=== PATIENT | male | born 1980 | race Caucasian/White ===

== ENCOUNTER 2018-11-09 19:23 | Emergency (ER) | payer OTHER ==
[2018-11-09 20:16] VITALS: BP 127/81
--- NOTE | 2018-11-09 21:16 | UC ---
FLU HPI - HPI Summary HPI Summary: 38-year-old male presents with one-week history of subjective fever, fatigue, malaise, and muscle aches. Today he noticed to circular rashes, one on his left upper arm and the other to his right ankle/heel. No known tick bite but frequently participates in outdoor activities. Denies headache, neck pain, ear pain, nasal congestion, runny nose, sore throat, cough, chest pain, shortness of breath, abdominal pain, nausea, or vomiting. - History of Current Complaint Chief Complaint: UCGeneralIllness Stated Complaint: FLU LIKE SYMPTONS, BULLS EYE MEG ON ANKLE Time Seen by Provider: 11/09/18 21:04 Hx Obtained From: Patient Pain Intensity: 3 - Allergy/Home Medications Allergies/Adverse Reactions: Allergies Allergy/AdvReac Type Severity Reaction Status Date / Time No Known Allergies Allergy Verified 11/09/18 20:16 Home Medications: Home Medications Ibuprofen TAB* [Advil TAB*] 600 mg PO ONCE PRN 11/09/18 [History Confirmed 11/09] PMH/Surg Hx/FS Hx/Imm Hx Previously Healthy: Yes - Denies significant PMH - Surgical History Surgical History: Yes Surgery Procedure, Year, and Place: LIPOMA REMOVAL, FX AND CAUTERIZATION OF TURBINATES - Family History Known Family History: Positive: Non-Contributory - Social History Occupation: Employed Full-time Lives: With Family Alcohol Use: Occasionally Substance Use Type: None Smoking Status (MU): Never Smoked Tobacco Review of Systems All Other Systems Reviewed And Are Negative: Yes Constitutional: Positive: Fever, Fatigue Skin: Positive: Rash Eyes: Negative: Drainage, Eye Redness ENT: Negative: Sore Throat, Ear Ache, Nasal Discharge, Sinus Congestion, Sinus Pain/Tenderness Respiratory: Negative: Shortness Of Breath, Cough Cardiovascular: Negative: Palpitations, Chest Pain Gastrointestinal: Negative: Abdominal Pain, Vomiting, Nausea Genitourinary: Positive: Negative Musculoskeletal: Positive: Myalgia Neurological: Negative: Headache, Weakness, Paresthesia Is Patient Immunocompromised?: No Physical Exam - Summary Physical Exam Summary: GENERAL APPEARANCE: Well developed, well nourished, alert and cooperative, and appears to be in no acute distress. EYES: Conjunctiva clear. No drainage. EARS: External auditory canals and tympanic membranes clear, hearing grossly intact. NOSE: No nasal discharge. THROAT: Pharynx normal No tonsilar inflammation, swelling, exudate, or lesions. Uvula midline. Oral cavity normal. Teeth and gingiva in good general condition. NECK: Neck supple, non-tender without lymphadenopathy. CARDIAC: Normal S1 and S2. No S3, S4 or murmurs. Rhythm is regular. There is no peripheral edema, cyanosis or pallor. Extremities are warm and well perfused. Capillary refill is less than 2 seconds. Peripheral pulses intact. LUNGS: Clear to auscultation without rales, rhonchi, wheezing or diminished breath sounds. ABDOMEN: Positive bowel sounds. Soft, nondistended, nontender. No guarding or rebound. No masses or hepatosplenomegally. MUSKULOSKELETAL: ROM intact to all extremities. No joint erythema or tenderness. Normal muscular development. Normal gait. SKIN: Skin normal color, texture and turgor. Large oval-shaped erythematous rash to the left upper arm and to the right posterior ankle and heel. Triage Information Reviewed: Yes Vital Signs: Initial Vital Signs Temp 98.1 F 11/09/18 20:12 Pulse 86 11/09/18 20:12 Resp 16 11/09/18 20:12 BP 127/81 11/09/18 20:12 Pulse Ox 99 11/09/18 20:12 Vital Signs Reviewed: Yes Flu Course/Dx - Course Course Of Treatment: 38-year-old male presents with one-week history of subjective fever, fatigue, malaise, and muscle aches. Today he noticed to circular rashes, one on his left upper arm and the other to his right ankle. No known tick bite but frequently participates in outdoor activities. Denies headache, neck pain, ear pain, nasal congestion, runny nose, sore throat, cough, chest pain, shortness of breath, abdominal pain, nausea, or vomiting. - Differential Dx/Diagnosis Differential Diagnosis/HQI/PQRI: Bronchitis, Influenza, Pneumonia, Upper Respiratory Infection, Other - Lyme disease Provider Diagnosis: Lyme disease Discharge - Sign-Out/Discharge Documenting (check all that apply): Patient Departure All imaging exams completed and their final reports reviewed: No Studies - Discharge Plan Condition: Stable Disposition: HOME Prescriptions: Doxycycline Hyclate 100 mg PO BID #28 tablet Patient Education Materials: Lyme Disease (ED) Referrals: No Primary Care Phys,NOPCP [Primary Care Provider] - Additional Instructions: Based on your symptoms and the appearance of your rash I am suspicious for the possibility of acute Lyme disease and will treat you with an antibiotic for this. Start doxycycline 100 mg twice a day for 2 weeks. Your first dose was given in the clinic. Do not drink milk, eat milk products, or take any calcium supplements for at least 2 hours before or after taking this antibiotic as it can affect the absorption. This antibiotic will make it more sensitive to the son therefore you should avoid sun exposure for take precautions such as sunscreen, long sleeves, and hat. You may take acetaminophen (Tylenol) or ibuprofen (Advil, Motrin) according to directions as needed for any aches, pains, or fever. To try to avoid getting bitten by a tick, you can: * Wear shoes, long-sleeved shirts, and long pants when you go outside. Keep ticks away from your skin by tucking your pants into your socks. * Wear light colors so you can spot any ticks that get on your clothes. * Wear bug spray or cream that contains DEET. (Do not use DEET on babies younger than 2 months.) On your clothes and gear, you can use bug repellents that have a chemical called "permethrin." * Shower within 2 hours of being outdoors if you think you have been in an area where there are ticks. * Put dry clothes briefly (for about 4 minutes) in a dryer after being outdoors. Follow-up with your primary care provider in one to 2 weeks for recheck of her symptoms. Seek immediate medical attention in the emergency room if you had a persistent fever greater than 100.5 F despite taking acetaminophen or ibuprofen, you have chest pain, difficulty breathing, severe headache, neck stiffness, numbness, tingling, or weakness of the extremities, or any worsening of symptoms. - Billing Disposition and Condition Condition: STABLE Disposition: Home
[2018-11-09] MEDS ORDERED: DOXYcycline CAP(*) 100 MG PO ONE (21:26)
== END 2018-11-09 21:40 | disposition home or self-care (01) ==
LOC: UCEAST 19:23
DX: A69.20 Lyme disease, unspecified (principal)
CPT/HCPCS: 99202; A9270-GY; G0463